=== PATIENT | male | born 1980 | race Two or more races ===

== ENCOUNTER 2025-01-06 16:00 | Emergency (ER) | payer MEDICAID, OTHER ==
[~2025-01-06] VITALS: Ht 175.3 cm; Wt 94.5 kg
[2025-01-06] MEDS ORDERED: HYDROcodone-ACET 10/325MG TAB PO ONE (16:15)
[2025-01-06] MEDS ORDERED: SODIUM CHLORIDE 0.9% 1,000 ML IV ONE (16:15)
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
[2025-01-06 16:22] VITALS: BP 112/76; PULSE 81; RESP 16; TEMP 99; O2SAT 97
--- NOTE | 2025-01-06 17:10 | DVH ---
CLINICAL INDICATION: fall TECHNIQUE: Right rib x-ray. 3 radiographic views of the chest x-ray and right ribs were obtained. Comparison: None FINDINGS/IMPRESSION: Minimally displaced right 7th and 8th rib fractures noted. linear atelectasis or scarring in the left lung base there are no prior studies for comparison The visualized joint space is well maintained. The alignment is anatomical. There is no radiopaque foreign body.
== END 2025-01-06 16:57 | disposition left against medical advice (07) ==
LOC: ER 16:00 → EDBD 16:00 → ER 16:57
DX: T67.5XXA Heat exhaustion, unspecified, initial encounter (principal); M79.18 Myalgia, other site; X58.XXXA Exposure to other specified factors, initial encounter; Y93.89 Activity, other specified; Y92.89 Other specified places as the place of occurrence of the external cause; Y99.8 Other external cause status
CPT/HCPCS: 71101